=== PATIENT | male | born 1985 | race Caucasian/White ===

== ENCOUNTER → 2016-12-01 | Outpatient (CLI) | payer OTHER ==
[~2016-12-01] VITALS: Ht 175.3 cm; Wt 151.9 kg
[2016-12-01 14:14] VITALS: BP 145/96; PULSE 102; Ht 175.3 cm; Wt 151.9 kg
== END | disposition home or self-care (01) ==
LOC: C.NEUR 13:55
PROVIDERS: ATTEND Allergy & Immunology Allergy
DX: R53.83 Other fatigue (principal); I10 Essential (primary) hypertension; E03.9 Hypothyroidism, unspecified

== ENCOUNTER → 2017-01-08 | Outpatient (CLI) | payer OTHER ==
--- NOTE | 2017-01-12 08:26 | PAP/PSG TECHNICIAN REPORT ---
[facility] Strap Stitcher Polysomnogram Report Study name: None Report date: 01/09/2017 Study date: 01/08/2017 Referring Physician: Radha Odonnell PA-C Name: CLAYTON TRISTAN Interpreting Physician: Keven De Leon D.O. Date of : 1985 Strap Stitcher: Tereza Lizarraga, PSGT. Sex: Male Age: 31 StudyType: PSG Weight: 334 lbs Height: 31 years, Height 5' 9" Neck Circum:15.75 inches BMI: 49.32 Medications: LISINOPRIL -HCTZ, SNYTHROID, ELOCON 1%. Patient History 31 YR. OLD MALE IN ROOM 5, PRESENTS TO THE SLEEP LAB WITH SNORING AND UNREFRESHED SLEEP.PT. HAS A MEDICAL HX OF HYPERTENSION AND HYPOTHYROIDISM. HAS HAD A WEIGHT GAIN OF 70 LBS. IN THE PAST YEAR.NECK = 15.75 INCHES. Parameters Monitored NPSG: E1-M2, E2-M1, Fp1-M2, Fp2-M1, F3-M2, F4-M2, F4-M1, C3-M2, C4-M2, C4-M1, O1-M2, O2-M2, O2-M1, T3-M2, T4-M1, P3-M2, P4-M1, CHIN1, CHIN2, HR, EKG, Legs, PFLOW, SNOR, FLOW, CFLOW, Tidal Volume, THOR, ABDO, SpO2, PLTH, CPRESS, ETCO2 Wave, ETCO2, pH Sleep Architecture Sleep Stages Time at Lights Off 11:01:18 PM STAGES Time (min.) TST (%) Time at Lights On 5:42:48 AM Wake 30.5 -- Total Recording Time (TRT) 400.50 min. N1 9.5 3 Total Sleep Period (TSP) 387.0 min. N2 223.5 60 Total Sleep Time (TST) 369.5min. N3 73.0 20 Awake Time 30.5 min. REM 63.5 17 Wake after Sleep Onset 17.5 min. Sleep Efficiency (SE) 92 % Sleep Onset Latency (JENNIE) 14.5 min. Number of Stage 1 Shifts None Awakenings 6 Stage Changes 36 Number of REM periods 2 REM 63.5 17 REM Latency 205.5 min. NREM 306.0 83 Body Position Analysis Supine Right Left Side Prone Vertical Total Sleep Time (min.) 211.1 109.6 0.0 109.59 59.0 0.3 Total Sleep Time (%) 57% 30% 0% 30 13% N/A% Total Sleep Time REM (min.) 40.4 23.1 0.0 None 0.0 0.0 Total Sleep Time NREM (min.) 170.8 86.5 0.0 None 48.8 0.0 Intermittent Wake (min.) 0.0 20.0 0.0 None 10.3 0.3 Total Sleep Period (%) 55% None None None None None Arousals Myoclonus (PLM) * Events Count Index Events Count Index Spontaneous 62 10 Events Awake (PLMW) 0 0.0 Respiratory 3 0.5 Events Asleep w/ Arousal (PLMA) 22 3.6 PLM 22 4 Events Asleep w/o Arousal (PLMS) 143 23.2 Snoring 21 3 Total Asleep 165 26.8 Total 108 18 Total 165 25 Respiratory Analysis * CA OA MA CH H RERA Total Count 0 1 1 0 41 1 43 Index 0.0 0.2 0.2 0 6.7 0 7.1 Mean Duration 0.0 19.1 26.5 0.00 20.3 13.1 20.2 Longest Duration 0.0 19.1 26.5 0.00 26.5 13.1 56.9 Respiratory Event Summary Total Supine ~Supine Right Left Prone REM NREM Apneas Count 2 2 0 0 N/A 0 2 0 Index 0.3 1 0 0.0 N/A 0 2 0 Hypopneas (4% Desat) Count 41 36 5 5 N/A 0 24 17 Index 6.7 10.2 2 2.7 N/A 0.0 22.7 3.3 Apneas & All Hypopneas Count 43 38 5 5 N/A 0 26 17 Index 7.0 11 2 3 N/A 0 24.6 3.3 Respiratory Events (Nuclear Control Operator+All Hyp+RERA) Count 43 38 6 6 N/A 0 26 17 Index 7.1 11 2 3.3 N/A 0.0 25.5 3.3 Respiratory Related Arousal Count 3 38 1 1 N/A 0 1 2 Index 0.5 1 0 1 N/A 0 1 0 Snoring Analysis Supine Right Left Prone REM NREM Total Snore duration 39.0 min Snores count 1,636 282 N/A 158 359 1,717 2,076 Snore mean duration 1.1 Sec Snores index 465 154 N/A 194 339.2 336.7 337.1 TST with snoring (%) 10.5% Desaturation Event Summary: Minimum %SpO2 Event Count Mean/Min/Max Duration(sec.) Desaturation Index % Time In Bed > 90 55 25.0 / 8.3 / 59.0 10.4 80.1 86 - 90 18 20.9 / 4.5 / 58.8 14.2 19.1 81 - 85 1 10.3 / 10.3 / 10.3 21.2 0.7 76 - 80 0 N/A 0.0 0.1 71 - 75 0 N/A 0.0 0.0 66 - 70 0 N/A 0.0 0.0 61 - 65 0 N/A 0.0 0.0 56 - 60 0 N/A 0.0 0.0 51 - 55 0 N/A 0.0 0.0 < 50 0 N/A 0.0 0.0 Total REM NREM Awake <50% 0.0 min. 0.0 min. 0.0 min. 0.0 min. 51 - 60% 0.0 min. 0.0 min. 0.0 min. 0.0 min. 61 - 70% 0.0 min. 0.0 min. 0.0 min. 0.0 min. 71 - 80% 0.5 min. 0.5 min. 0.0 min. 0.0 min. 81 - 90% 78.7 min. 21.1 min. 56.0 min. 1.6 min. 91 - 100% 318.1 min. 42.0 min. 248.0 min. 28.1 min. Average 91 90 91 92 Minimum SpO2 76 76 83 89 Desaturation Event Index 9.3 25.5 6.9 0.0 # Desat. Events below 89% 28 22 6 N/A Time(%) with Saturation below 89% 2.9 2.4 0.5 0.0 Time(min.) with Saturation below 89% 11.7 9.5 2.2 0.0 Time (mins) REM (mins) NREM (mins) % of TST SpO2 Below 90% 59 27 N32 6.8 SpO2 Below 88% 12 0 0 2 Heart Rate Analysis Min (bpm) Max (bpm) Average (bpm) Awake 50 102 79 NREM 52 127 70 REM 40 91 68 Overall 40 127 70 Supplemental O2 Values Minimum O2 level: None Value Start Time End Time Strap Stitcher Comments PSG Study Mr. Tristan slept in the right, prone and supine positions. No cardiac arrhythmia or PLM's noted. No bruxism noted. Snoring was noted and scored as a 3 on a scale of 1 through 5. (0=no snoring, 5=snoring loud enough to be heard through a closed door or down the [address] way) Mr. Tristan stated, I did not sleep as well as I do when I am in my own bed. The final report will be interpreted and signed by a sleep physician. The completed physician report will then be placed in the patient medical record. Snoring was displayed and heard. Patient did display some few respiratory events while in rem. Therapy (cm H2O) 0 TIB (min.) 400.0 TST (min.) 369.5 Sleep Onset (min.) 14.5 REM Onset From Sleep (min.) 205.5 Sleep Efficiency % 92 Wakefulness (%) 8 Wakefulness (min.) 30.5 NREM 1 (%) 3 NREM 1 (min.) 9.5 NREM 2 (%) 60 NREM 2 (min.) 223.5 NREM 3 (%) 20 NREM 3 (min.) 73.0 REM (%) 17 REM (min.) 63.5 # Arousals 108 Arousal Index 18 # Snore 2,076 Snore Index 337.1 AHI 7.0 AHI Supine 11 AHI Non-Supine 2 NREM AHI 3.3 REM AHI 24.6 RDI 7.1 # Obstructive Apnea 1 # Central Apnea 0 # Mixed Apnea 1 # Hypopneas 41 RERAs 1 Total Respiratory Events 44 Time Below SpO2 89% (min.) 11.7 Mean NREM SpO2 (%) 91 Mean REM SpO2 (%) 90 Mean Sleep SpO2 (%) 91 Min NREM SpO2 (%) 83 Min REM SpO2 (%) 76 Position Supine (min.) 211.1 Position Non-supine (min.) 158.4 LM Index Sleep 26.8 LM Index NREM 29.6 LM Index REM 13.2 Mean Heart Rate (bpm) 70 Min Heart Rate (bpm) 40
--- NOTE | 2017-01-12 18:19 | POLYSOMNOGRAPH REPORT ---
FAMILY PHYSICIAN: Earlene Chaudhari MD REFERRING PHYSICIAN: Radha Odonnell PA-C. CLINICAL DATA: The patient is a 31-year-old male with a BMI severely elevated at 49.32. He is referred by Dr. Earlene Chaudhari and by Radha Odonnell PA-C. An in-lab diagnostic sleep study was performed. His complaints include snoring and fatigue. He has a clinical history of hypertension and hypothyroidism as potential comorbidities. The [place] sleepiness score was 4 out of a possible 24. SLEEP ARCHITECTURE: The total sleep period was 387.0 minutes. Total sleep time was 369.5 minutes. Sleep efficiency was 92%. Sleep latency was normal at 14.5 minutes. REM latency was prolonged at 205.5 minutes. There were 2 REM periods during the night. Wake after sleep onset was 17.5 minutes. Sleep consisted of stage N1 3%, stage N2 60%, stage N3 20%, and stage REM 17%. AROUSAL DATA: The patient had a total of 108 arousals including 62 spontaneous arousals, 3 respiratory arousals, 22 periodic limb movement arousals, and 21 snoring arousals. The arousal index was 18. PLM DATA: The patient had a total of 143 periodic limb movements of sleep for a PLM index of 23.2 events per hour. The PLM arousal index was only 3.6. EKG: The underlying rhythm was normal sinus with some degree of sinus arrhythmia. The cardiac rates average 70 beats per minute. The minimum heart rate was 40 beats per minute. RESPIRATORY DATA: The patient had a total of 43 respiratory events including 1 obstructive apnea, 1 mixed apnea, and 41 hypopneas. Hypopneas were scored by the 4% rule. The longest apnea was 26.5 seconds. The apnea-hypopnea index was mildly elevated at 7.0 events per hour. This is compatible with mild sleep apnea. OXIMETRY DATA: The patient had an average saturation of 91% and a minimum saturation of 76%. There was a total of 12 minutes with saturations less than 88%. PLUMBING TECHNICIAN COMMENTS: Mr. Tristan slept in the right, prone, and supine positions. No cardiac arrhythmias were noted. Snoring was noted and scored as a 3 on a scale of 1 through 5. The patient indicated he did not sleep as well as he does in his own bed. IMPRESSIONS: 1. Obstructive sleep apnea -- mild. 2. Nocturnal hypoxia. COMMENTS: The patient had a normal sleep efficiency. He had mild sleep apnea as noted. In addition to the sleep apnea, he had a moderate number of spontaneous arousals. This may be seen with upper airway resistance. His symptoms were those of snoring and fatigue. He does have hypertension and hypothyroidism. In light of the above, consideration to treatment is advised. RECOMMENDATIONS: 1. Consideration could be given to a trial of nasal CPAP if the patient desired. Clinical correlation is required in this regard. 2. The patient has a severe elevation of body mass index. A weight reduction program is strongly advised. 3. The patient should be advised to avoid sleeping in the supine position. Most of his events occurred when he was supine. 4. The patient should be advised of the appropriate principles of sleep hygiene including allowing sufficient sleep time and maintaining a fairly regular sleep-wake schedule. MTDD
== END | disposition home or self-care (01) ==
LOC: C.NEUR 20:00
PROVIDERS: ATTEND Allergy & Immunology Allergy
DX: R53.83 Other fatigue (principal); I10 Essential (primary) hypertension; E03.9 Hypothyroidism, unspecified

== ENCOUNTER → 2017-02-19 | Outpatient (CLI) | payer OTHER ==
[~2017-02-19] VITALS: Ht 177.8 cm; Wt 151.5 kg
[2017-02-19 14:48] VITALS: BP 140/84; PULSE 101; Ht 177.8 cm; Wt 151.5 kg
== END | disposition home or self-care (01) ==
LOC: C.NEUR 14:17
PROVIDERS: ATTEND Internal Medicine Pulmonary Disease
DX: G47.30 Sleep apnea, unspecified (principal)